=== PATIENT | male | born 1995 | race African-American/Black ===

== ENCOUNTER 2018-04-27 03:21 | Emergency (ER) | payer SELFPAY ==
[2018-04-27] MEDS ORDERED: IPRATROPIUM/ALBUTEROL 0.5-2.5 MG/3 ML AMPUL NEB ONE (07:04)
[2018-04-27] MEDS ORDERED: PREDNISONE 20 MG TABLET PO ONE (07:04)
[2018-04-27] MEDS ORDERED: ALBUTEROL SULFATE 0.083% NEB 2.5 MG/3 ML AMPUL NEB ONE (07:54)
[2018-04-27] MEDS ORDERED: ALBUTEROL SULFATE HFA (90 MCG/PUFF) 8 GM MDI (1 MDI/ER DISP) IH ONE (07:54)
--- NOTE | 2018-04-27 07:57 | ER Document Report ---
ED General - General Chief Complaint: Breathing Difficulty Stated Complaint: SHORTNESS OF BREATH Time Seen by Provider: 04/27/18 06:38 TRAVEL OUTSIDE OF THE [place] IN LAST 30 DAYS: No - HPI Patient complains to provider of: Difficulty breathing Notes: Patient coming in for difficulty breathing cough. Patient states ongoing for the last 24 hours. Patient states recently started smoking does have a history of asthma in the past. Patient denies any hospitalizations recent travel or intubations with his asthma. Patient otherwise resting company upon my evaluation states chest pain when he coughs. Denies any nausea vomiting diarrhea fevers chills. Denies any trauma denies any recent travel. Patient is resting no obvious distress upon my evaluation. - Related Data Allergies/Adverse Reactions: No Known Allergies Allergy (Unverified 04/27/18 03:24) Past Medical History - Social History Smoking Status: Current Every Day Smoker Family History: Reviewed & Not Pertinent Patient has suicidal ideation: No Patient has homicidal ideation: No Pulmonary Medical History: Reports: Hx Asthma Renal/ Medical History: Denies: Hx Peritoneal Dialysis Past Surgical History: Reports: Hx Orthopedic Surgery - pin in left hip Review of Systems - Review of Systems Constitutional: No symptoms reported EENT: No symptoms reported Cardiovascular: No symptoms reported Respiratory: Short of breath, Wheezing Gastrointestinal: No symptoms reported Genitourinary: No symptoms reported Male Genitourinary: No symptoms reported Musculoskeletal: No symptoms reported Skin: No symptoms reported Hematologic/Lymphatic: No symptoms reported Neurological/Psychological: No symptoms reported -: Yes All other systems reviewed and negative Physical Exam - Vital signs Vitals: Temp Pulse Resp BP Pulse Ox 97.6 F 85 19 120/72 97 04/27/18 03:26 04/27/18 03:26 04/27/18 03:26 04/27/18 03:26 04/27/18 03:26 Interpretation: Normal - General General appearance: Appears well, Alert - HEENT Head: Normocephalic, Atraumatic Eyes: Normal Pupils: PERRL - Respiratory Respiratory status: No respiratory distress Chest status: Nontender Breath sounds: Wheezing Chest palpation: Normal - Cardiovascular Rhythm: Regular Heart sounds: Normal auscultation Murmur: No - Abdominal Inspection: Normal Distension: No distension Bowel sounds: Normal Tenderness: Nontender Organomegaly: No organomegaly - Back Back: Normal, Nontender - Extremities General upper extremity: Normal inspection, Nontender, Normal color, Normal ROM, Normal temperature General lower extremity: Normal inspection, Nontender, Normal color, Normal ROM, Normal temperature, Normal weight bearing. No: Garrett's sign - Neurological Neuro grossly intact: Yes Cognition: Normal Orientation: AAOx4 Pamela Coma Scale Eye Opening: Spontaneous Hanna Coma Scale Verbal: Oriented Pamela Coma Scale Motor: Obeys Commands Hanna Coma Scale Total: 15 Speech: Normal Motor strength normal: LUE, RUE, LLE, RLE Sensory: Normal - Psychological Associated symptoms: Normal affect, Normal mood - Skin Skin Temperature: Warm Skin Moisture: Dry Skin Color: Normal Course - Re-evaluation Re-evalutation: 04/27/18 12:47 Patient coming in for shortness of breath difficulty breathing consistent with a slight asthma exacerbation. Patient with improvement of his lung sounds still wheezing after initial treatment. Patient states feeling better. Another albuterol treatment was given to the patient states he still is feeling better will discharge patient home with albuterol for nebulizer at home albuterol inhaler and steroids. - Vital Signs Vital signs: Temp Pulse Resp BP Pulse Ox 98.3 F 92 20 119/61 100 04/27/18 09:36 04/27/18 09:36 04/27/18 09:36 04/27/18 09:36 04/27/18 09:36 Discharge - Discharge Clinical Impression: Acute dyspnea, Wheezing, Smoking Condition: Good Disposition: HOME, SELF-CARE Instructions: Asthma ([facility]), Dyspnea, Nonspecific ([facility]) Additional Instructions: We will treat your shortness of breath and wheezing with bronchodilator therapy albuterol along with steroids. Is very important that you discontinue smoking. Return to ER for any other concerns. Prescriptions: Albuterol Sulfate [Proair HFA Inhalation Aerosol 8.5 gm MDI] 2 puff IH Q4H PRN #1 mdi PRN Reason: Albuterol Sulfate [Proventil 0.5% Neb 2.5 mg/0.5 ml Vial.neb] 2.5 mg NEB Q4 #30 vial.neb Prednisone [Deltasone 20 mg Tablet] 3 tab PO DAILY 5 Days tablet Forms: Smoking Cessation Education, Return to Work
[2018-04-27 09:41] VITALS: BP 119/61
== END 2018-04-27 09:43 | disposition home or self-care (01) ==
LOC: ER 03:21
DX: R06.2 Wheezing (principal); R06.00 Dyspnea, unspecified; R06.02 Shortness of breath; F17.200 Nicotine dependence, unspecified, uncomplicated
CPT/HCPCS: 94640 ×2; 99284; J7512; J3490; J7620

== ENCOUNTER 2018-05-13 00:57 | Emergency (ER) | payer SELFPAY ==
[2018-05-13] MEDS ORDERED: PREDNISONE 20 MG TABLET PO ONE (02:43)
[2018-05-13] MEDS ORDERED: ALBUTEROL SULFATE HFA (90 MCG/PUFF) 8 GM MDI (1 MDI/ER DISP) IH ONE (02:43)
--- NOTE | 2018-05-13 02:47 | ER Document Report ---
ED General - General Chief Complaint: Cough Stated Complaint: COUGH Time Seen by Provider: 05/13/18 02:15 Notes: Patient is a 22-year-old male who presents with complaint of wheezing and coughing. Patient has a history of asthma. He says over the last week he has had recurrent wheezing. Was seen here a week ago and given dose of steroids and inhaler. He says he was better for 2 3 days but was unable to fill his prednisone prescription and therefore start having wheezing again and therefore came to the ER. No fevers. No vomiting. No other complaints at this time. TRAVEL OUTSIDE OF THE [place] IN LAST 30 DAYS: No - Related Data Allergies/Adverse Reactions: No Known Allergies Allergy (Unverified 04/27/18 03:24) Past Medical History - Social History Smoking Status: Former Smoker Frequency of alcohol use: None Drug Abuse: None Family History: Reviewed & Not Pertinent Patient has suicidal ideation: No Patient has homicidal ideation: No Pulmonary Medical History: Reports: Hx Asthma Renal/ Medical History: Denies: Hx Peritoneal Dialysis Past Surgical History: Reports: Hx Orthopedic Surgery - pin in left hip Review of Systems - Review of Systems Notes: My Normal Review Basic REVIEW OF SYSTEMS: CONSTITUTIONAL : Denies fever, chills, or sweats. Denies recent illness. EENT: Denies eye, ear, throat, or mouth pain or symptoms. Denies nasal or sinus congestion. RESPIRATORY: Scattered wheezing. Some coughing. GASTROINTESTINAL: Denies abdominal pain. Denies nausea, vomiting, or diarrhea. MUSCULOSKELETAL: Denies neck or back pain or joint pain or swelling. SKIN: Denies rash or skin lesions. NEUROLOGICAL: Denies altered mental status or loss of consciousness. Denies headache. Denies weakness or paralysis or loss of use of either side. Denies problems with gait or speech. Denies sensory or motor loss. ALL OTHER SYSTEMS REVIEWED AND NEGATIVE. Physical Exam - Vital signs Vitals: Temp Pulse Resp BP Pulse Ox 97.7 F 63 17 112/59 L 95 05/13/18 01:35 05/13/18 01:35 05/13/18 01:35 05/13/18 01:35 05/13/18 01:35 - Notes Notes: General Appearance: Well nourished, alert, cooperative, no acute distress, no obvious discomfort. Vitals: reviewed, See vital signs table. Head: no swelling or tenderness to the head Eyes: PERRL, EOMI, Conjuctiva clear Mouth: No decreasd moisture Throat: No tonsillar inflammation, No airway obstruction, No lymphadenopathy Neck: Supple, no neck swelling Lungs: Noted wheezing. Good air exchange. Heart: Normal rate, Regular rythm, No murmur, no rub Skin: warm, dry, appropriate color, no rash Neuro: speech clear, oriented x 3, normal affect, responds appropriately to questions. Course - Re-evaluation Re-evalutation: 05/13/18 02:46 I suspect the patient is having some intermittent wheezing due to his asthma and also being that this current allergy season we have had a very large amount of pollen. I encouraged him to take [id number]-[id number] allergy medicine such as fexofenadine. The prednisone helped him with the 1 dose he received last time however he did not get his prescription filled and therefore his wheezing started again. I talked about the importance of taking the prednisone and I can have a good Rx prescription coupon for the prednisone wears only just over $4 at [facility]. We will give inhaler to go home with. I strongly encouraged him return to ER if he has recurrent worsening wheezing despite use of inhaler, fevers, difficulty breathing, or if he feels unwell. Patient agrees with plan will be discharged home. Dictation of this chart was performed using voice recognition software; therefore, there may be some unintended grammatical errors. - Vital Signs Vital signs: Temp Pulse Resp BP Pulse Ox 98 F 60 17 127/77 H 97 05/13/18 03:05 05/13/18 03:05 05/13/18 03:05 05/13/18 03:05 05/13/18 03:05 Discharge - Discharge Clinical Impression: Asthma Qualifiers: Asthma severity: unspecified severity Asthma persistence: intermittent Asthma complication type: with acute exacerbation Qualified Code(s): J45.21 - Mild intermittent asthma with (acute) exacerbation Condition: Good Disposition: HOME, SELF-CARE Additional Instructions: Please use the inhaler as 2 puffs every 4 hours. Please return to the ER immediately if you develop worsening difficulty breathing, fevers, or wheezing not responding to the inhaler. Please take the Prednisone as prescribed. Please consider taking an over the counter allergy medicine such as Fexofenidine. Prescriptions: RX: Prednisone [Deltasone 20 mg Tablet] 3 tab PO DAILY 4 Days #12 tablet
[2018-05-13 03:06] VITALS: BP 127/77
== END 2018-05-13 03:06 | disposition home or self-care (01) ==
LOC: ER 00:57
DX: J45.21 Mild intermittent asthma with (acute) exacerbation (principal)
CPT/HCPCS: 99283; J7512; J3490

== ENCOUNTER 2018-05-28 14:32 | Emergency (ER) | payer SELFPAY ==
[2018-05-28 14:45] VITALS: BP 135/75
[2018-05-28] MEDS ORDERED: IPRATROPIUM/ALBUTEROL 0.5-2.5 MG/3 ML AMPUL NEB ONE (14:51)
[2018-05-28] MEDS ORDERED: ALBUTEROL SULFATE 0.083% NEB 2.5 MG/3 ML AMPUL NEB ONE ×2 (14:51)
[2018-05-28] MEDS ORDERED: METHYLPREDNISOLONE INJ 125 MG/2 ML SDV IV ONE (14:52)
--- NOTE | 2018-05-28 14:53 | ER Document Report ---
ED Medical Screen (RME) - General Chief Complaint: Asthma Exacerbation Stated Complaint: DIFFICULTY BREATHING Time Seen by Provider: 05/28/18 14:48 Mode of Arrival: Ambulatory Information source: Patient Notes: Patient is a 22-year-old male with past medical history of asthma who presents to the emergency department with asthma exacerbation. Patient reports wheezing started last night, states he cannot find his inhaler. Patient reports associated wheezing and shortness of breath. Denies any fevers. Reports cough. Exam: Inspiratory and expiratory wheezes noted bilaterally. I have greeted and performed a rapid initial assessment of this patient. A comprehensive ED assessment and evaluation of the patient, analysis of test results and completion of the medical decision making process will be conducted by additional ED providers. Dictation of this chart was performed using voice recognition software; therefore, there may be some unintended grammatical errors. TRAVEL OUTSIDE OF THE [place] IN LAST 30 DAYS: No - Related Data Allergies/Adverse Reactions: No Known Allergies Allergy (Unverified 04/27/18 03:24) Past Medical History Pulmonary Medical History: Reports: Hx Asthma Renal/ Medical History: Denies: Hx Peritoneal Dialysis Past Surgical History: Reports: Hx Orthopedic Surgery - pin in left hip Physical Exam - Vital signs Vitals: Temp Pulse Resp BP Pulse Ox 98 F 90 24 H 135/75 H 97 05/28/18 14:37 05/28/18 14:37 05/28/18 14:37 05/28/18 14:37 05/28/18 14:37 Course - Vital Signs Vital signs: Temp Pulse Resp BP Pulse Ox 98 F 90 24 H 135/75 H 97 05/28/18 14:37 05/28/18 14:37 05/28/18 14:37 05/28/18 14:37 05/28/18 14:37
[2018-05-28] MEDS: MAGNESIUM SULFATE/D5W 1 GM/100 ML RTUPB IV SCH ×2 (15:28→15:38)
[2018-05-28 15:42] LABS: ABSOLUTE EOSINOPHILS # (AUTO) 0.5 10^3/uL (0.0-0.6); ABSOLUTE LYMPHOCYTES (AUTO) 0.9 10^3/uL (0.5-4.7); ABSOLUTE MONOCYTES (AUTO) 0.2 10^3/uL (0.1-1.4); ABSOLUTE NEUT (AUTO) 4.4 10^3/uL (1.7-8.2); BASOPHILS % (AUTO) 0.3 % (0-2); EOSINOPHILS % (AUTO) 8.2 % (0-6); HEMATOCRIT 46.3 % (37.9-51.0); HEMOGLOBIN 15.9 g/dL (13.5-17.0); LYMPHOCYTES % (AUTO) 15.4 % (13-45); MEAN CORPUSCULAR HEMOGLOBIN 30.1 pg (27.0-33.4); MEAN CORPUSCULAR HGB CONC 34.5 g/dL (32.0-36.0); MEAN CORPUSCULAR VOLUME 87 fl (80-97); MONOCYTES % (AUTO) 3.5 % (3-13); PLATELET COUNT 190 10^3/uL (150-450); RED BLOOD COUNT 5.29 10^6/uL (4.35-5.55); RED CELL DISTRIBUTION WIDTH 16.6 % (11.5-14.0); SEGMENTED NEUTROPHILS % (AUTO) 72.6 % (42-78); TOTAL CELLS COUNTED % (AUTO) 100 %; WHITE BLOOD COUNT 6.1 10^3/uL (4.0-10.5)
[2018-05-28 15:49] LABS: ALANINE AMINOTRANSFERASE 33 U/L (21-72); ALBUMIN 4.1 g/dL (3.5-5.0); ALKALINE PHOSPHATASE 53 U/L (38-126); ANION GAP 10 (5-19); ASPARTATE AMINO TRANSFERASE 19 U/L (17-59); BILIRUBIN,DIRECT 0.2 mg/dL (0.0-0.4); BILIRUBIN,TOTAL 0.8 mg/dL (0.2-1.3); BLOOD UREA NITROGEN 13 mg/dL (7-20); CALCIUM 9.4 mg/dL (8.4-10.2); CARBON DIOXIDE 27 mmol/L (22-30); CHLORIDE 105 mmol/L (98-107); GLUCOSE 95 mg/dL (75-110); POTASSIUM 3.8 mmol/L (3.6-5.0); SODIUM 141.7 mmol/L (137-145)
--- NOTE | 2018-05-28 15:54 | RADIOLOGY REPORT (SQ) ---
EXAM DESCRIPTION: CHEST 2 VIEWS COMPLETED DATE/TIME: 05/28/2018 3:18 pm REASON FOR STUDY: COUGH, WHEEZING COMPARISON: None. EXAM PARAMETERS: NUMBER OF VIEWS: two views TECHNIQUE: Digital Frontal and Lateral radiographic views of the chest acquired. RADIATION DOSE: NA LIMITATIONS: none FINDINGS: LUNGS AND PLEURA: No consolidation, pneumothorax or pleural effusion. MEDIASTINUM AND HILAR STRUCTURES: No masses or contour abnormalities. HEART AND VASCULAR STRUCTURES: Heart normal size. No evidence for failure. BONES: No acute findings. HARDWARE: None in the chest. IMPRESSION: NO ACUTE RADIOGRAPHIC FINDING IN THE CHEST. TECHNICAL DOCUMENTATION: JOB ID: [id number] 2010 [employer]- All Rights Reserved Reading location - IP/workstation name: [email or web address]
--- NOTE | 2018-05-28 16:39 | ER Document Report ---
ED General - General Chief Complaint: Asthma Exacerbation Stated Complaint: DIFFICULTY BREATHING Time Seen by Provider: 05/28/18 14:48 Mode of Arrival: Ambulatory TRAVEL OUTSIDE OF THE [place] IN LAST 30 DAYS: No - HPI Patient complains to provider of: Shortness of breath, coughing, wheezing, seasonal allergies Onset: Last week Onset/Duration: Persistent Quality of pain: No pain Severity: None Associated symptoms: Nonproductive cough, Shortness of breath. denies: Chills, Fever Exacerbated by: Denies Relieved by: Denies Similar symptoms previously: No Recently seen / treated by doctor: No Notes: 22-year-old -[place] male with history of asthma allergies and atopic dermatitis here with shortness of breath, coughing, wheezing since last week. Apparently has been to the ER for this recently. He has been diagnosed with asthma exacerbation. Was sent on prednisone and metered-dose inhaler. His metered-dose inhaler has gone missing and he is presenting for the same thing today. - Related Data Allergies/Adverse Reactions: No Known Allergies Allergy (Unverified 04/27/18 03:24) Past Medical History - General Information source: Patient - Social History Smoking Status: Never Smoker Frequency of alcohol use: None Drug Abuse: None Family History: Reviewed & Not Pertinent Patient has suicidal ideation: No Patient has homicidal ideation: No Pulmonary Medical History: Reports: Hx Asthma Renal/ Medical History: Denies: Hx Peritoneal Dialysis Past Surgical History: Reports: Hx Orthopedic Surgery - pin in left hip Review of Systems - Review of Systems Notes: Constitutional: No fevers. No chills. EENT: No eye redness. No eye pain. No ear pain. No sore throat. Cardiovascular: No chest pain. No palpitations. Respiratory: Positive for cough. Positive for shortness of breath. No respira tory distress. Gastrointestinal: No abdominal pain. No nausea, vomiting, or diarrhea. Genitourinary: Atraumatic. No lesions. No pain. No discharge. Musculoskeletal: Atraumatic. No swelling. No deformities. Skin: No rash or lesions. Lymphatic: No swollen lymph nodes. Neurologic: No headache. No syncope. Psychiatric: No suicidal or homicidal ideation. Physical Exam - Vital signs Vitals: Temp Pulse Resp BP Pulse Ox 98 F 90 24 H 135/75 H 97 05/28/18 14:37 05/28/18 14:37 05/28/18 14:37 05/28/18 14:37 05/28/18 14:37 - Notes Notes: General: Well-developed, well-nourished. In no acute distress. Non-toxic appearing. Cardiac: Well-perfused. Regular rate and rhythm. No murmurs, rubs, or gallops. Pulmonary: No respiratory distress. No cyanosis. Bilateral lung boogie are clear to auscultation. Abdominal: Non-distended. Non-rigid. Bowels sounds are present in all four quadrants. No guarding or rebound. HEENT: Head is atraumatic. Conjunctivae not reddened. No tearing. PERRL. EOMI. Orbits atraumatic. No periorbital swelling or erythema. Oropharynx is without erythema, swelling, or exudates. Neck: Supple. No adenopathy. No meningismus. Dermatologic: Warm with good turgor. No rash. Atraumatic. Chest: Atraumatic. No chest wall tenderness to palpation. Musculoskeletal: Moves all extremities well. No range of motion deficits. no muscular or joint tenderness. No paraspinal muscle tenderness. no midline spinal tenderness or step-off. Genitourinary: Examination deferred Neurologic: No gross neurologic deficits. Psychiatric: Normal mood. Course - Re-evaluation Re-evalutation: 05/28/18 16:36 Patient appears to be feeling better after couple of breathing treatments. We will start him on a prescription of prednisone 50 mg daily for a week. Also issued him a metered-dose inhaler. I will refer him to the [facility] for further evaluation - Vital Signs Vital signs: Temp Pulse Resp BP Pulse Ox 98 F 90 24 H 135/75 H 97 05/28/18 14:37 05/28/18 14:37 05/28/18 14:37 05/28/18 14:37 05/28/18 14:37 - Laboratory Result Diagrams: 05/28/18 15:10 05/28/18 15:10 Laboratory results interpreted by me: 05/28/18 15:10 RDW 16.6 H Eosinophils % 8.2 H Discharge - Discharge Clinical Impression: Asthma exacerbation Qualifiers: Asthma severity: unspecified severity Asthma persistence: unspecified Qualified Code(s): J45.901 - Unspecified asthma with (acute) exacerbation Condition: Good Disposition: HOME, SELF-CARE Instructions: Asthma ([facility]), Inhaled Bronchodilators ([facility]) Prescriptions: Albuterol Sulfate [Proair Hfa Inhalation Aerosol 8.5 gm Mdi] 2 puff IH Q4HP PRN #1 inhaler PRN Reason: Prednisone 50 mg PO DAILY #7 tablet Referrals: [facility] [Provider Group] - Follow up as needed
== END 2018-05-28 17:02 | disposition home or self-care (01) ==
LOC: ER 14:32
DX: J45.901 Unspecified asthma with (acute) exacerbation (principal); R06.02 Shortness of breath; R05 Cough; Z79.899 Other long term (current) drug therapy
CPT/HCPCS: 94640 ×2; 99285; 96375; 96365; 36415; 85025; 80053; 71046; J2930; J3475; J7620

== ENCOUNTER 2018-11-24 21:58 | Emergency (ER) | payer SELFPAY ==
[2018-11-24] MEDS ORDERED: PREDNISONE 20 MG TABLET PO ONE (22:27)
[2018-11-24] MEDS ORDERED: IPRATROPIUM/ALBUTEROL 0.5-2.5 MG/3 ML AMPUL NEB ONE (22:27)
--- NOTE | 2018-11-24 22:29 | ER Document Report ---
ED Medical Screen (RME) - General Chief Complaint: Shortness Of Breath Stated Complaint: DIFFICULTY BREATHING Time Seen by Provider: 11/24/18 22:25 Mode of Arrival: Ambulatory Information source: Patient Notes: 23-year-old male presents emergency department shortness of breath difficulty breathing. Reports history of asthma. Reports he used the last of his inhaler last night. Reports symptoms started last night. Denies fever vomiting diarrhea. Has never been intubated for asthma. Reports when he was younger he was hospitalized. Positive wheeze noted patient short of breath with talking. I have greeted and performed a rapid initial assessment of this patient. A comprehensive ED assessment and evaluation of the patient, analysis of test results and completion of the medical decision making process will be conducted by additional ED providers. Dictation of this chart was performed using voice recognition software; therefore, there may be some unintended grammatical errors. TRAVEL OUTSIDE OF THE [place] IN LAST 30 DAYS: No COUNTRY TRAVELED TO/FROM: [facility] - Related Data Allergies/Adverse Reactions: No Known Allergies Allergy (Unverified 04/27/18 03:24) Past Medical History Pulmonary Medical History: Reports: Hx Asthma Renal/ Medical History: Denies: Hx Peritoneal Dialysis Past Surgical History: Reports: Hx Orthopedic Surgery - pin in left hip Physical Exam - Vital signs Vitals: Temp Pulse Resp BP Pulse Ox 97.3 F 88 20 117/68 95 11/24/18 22:19 11/24/18 22:19 11/24/18 22:19 11/24/18 22:19 11/24/18 22:19 Course - Vital Signs Vital signs: Temp Pulse Resp BP Pulse Ox 97.3 F 88 20 117/68 95 11/24/18 22:19 11/24/18 22:19 11/24/18 22:19 11/24/18 22:19 11/24/18 22:19
[2018-11-24] MEDS: ALBUTEROL SULFATE 0.083% NEB 2.5 MG/3 ML AMPUL NEB SCH ×2 (22:52→23:15)
[2018-11-25] MEDS ORDERED: ALBUTEROL SULFATE HFA (90 MCG/PUFF) 8 GM MDI (1 MDI/ER DISP) IH PRN (00:51)
--- NOTE | 2018-11-25 01:00 | ER Document Report ---
ED General - General Chief Complaint: Shortness Of Breath Stated Complaint: DIFFICULTY BREATHING Time Seen by Provider: 11/24/18 22:25 Mode of Arrival: Ambulatory TRAVEL OUTSIDE OF THE [place] IN LAST 30 DAYS: No COUNTRY TRAVELED TO/FROM: [facility] - HPI Notes: Patient is a 23-year-old male with a known history of asthma who presents to the emergency department for evaluation of difficulty breathing. He states this started about 8:00 tonight. He states that all feels typical of his asthma exacerbations. He does note that he is run out of his albuterol inhaler. He denies any fevers or chills. He has a dry hacking cough. He has some pain across his anterior chest, states is always typical of his asthma exacerbations. He describes it as a soreness, currently rates it at a 1 out of 5. - Related Data Allergies/Adverse Reactions: No Known Allergies Allergy (Unverified 04/27/18 03:24) Home Medications: Albuterol MDI, 2 puffs as needed Past Medical History - General Information source: Patient - Social History Smoking Status: Never Smoker Family History: Reviewed & Not Pertinent, Thyroid Disfunction Patient has suicidal ideation: No Patient has homicidal ideation: No Pulmonary Medical History: Reports: Hx Asthma Renal/ Medical History: Denies: Hx Peritoneal Dialysis Past Surgical History: Reports: Hx Orthopedic Surgery - pin in left hip Review of Systems - Review of Systems Constitutional: No symptoms reported EENT: No symptoms reported Cardiovascular: No symptoms reported Respiratory: See HPI Gastrointestinal: No symptoms reported Genitourinary: No symptoms reported Musculoskeletal: No symptoms reported Skin: No symptoms reported Neurological/Psychological: No symptoms reported Physical Exam - Vital signs Vitals: Temp Pulse Resp BP Pulse Ox 97.3 F 88 20 117/68 95 11/24/18 22:19 11/24/18 22:19 11/24/18 22:19 11/24/18 22:19 11/24/18 22:19 - Notes Notes: Vital signs reviewed, please refer to chart. Head is normocephalic, atraumatic. Pupils equal round, reactive to light. Neck is supple without meningismus. Heart is regular rate and rhythm. Lungs revealed very sparse expiratory wheezes, no respiratory distress, no increased respiratory effort. Abdomen is soft, nontender, normoactive bowel sounds throughout. Extremities without cyanosis, clubbing. Posterior calves are nontender. Peripheral pulses are equal. Skin is warm and dry. Patient is awake, alert, neurological exam is non focal. Course - Re-evaluation Re-evalutation: 11/25/18 00:57 Patient presents emergency department for evaluation. He was initially medicated with breathing treatment and prednisone. He is feeling significantly improved. I will go ahead and give him an albuterol inhaler here, prescription for the same. We will also send him home with a prescription for prednisone and close follow-up. He is to return to the ED with worsening or new concerning symptoms of any sort. - Vital Signs Vital signs: Temp Pulse Resp BP Pulse Ox 97.8 F 80 16 120/61 100 11/24/18 23:30 11/24/18 23:30 11/24/18 23:30 11/24/18 23:30 11/24/18 23:30 Discharge - Discharge Clinical Impression: Acute asthma Condition: Stable Disposition: HOME, SELF-CARE Instructions: Asthma ([facility]) Additional Instructions: Use albuterol inhaler as directed, as needed for shortness of breath. Take all the prednisone as directed until gone, starting tomorrow. Follow-up with your primary care physician next week. Return to the emergency department with worsening or new concerning symptoms of any sort.
[2018-11-25 01:19] VITALS: BP 109/48
== END 2018-11-25 01:26 | disposition home or self-care (01) ==
LOC: ER 21:58
DX: J45.901 Unspecified asthma with (acute) exacerbation (principal)
CPT/HCPCS: 94640 ×2; 99284; J7512; J3490; J7620

== ENCOUNTER 2019-04-24 06:30 | Emergency (ER) | payer SELFPAY ==
[2019-04-24] MEDS ORDERED: IPRATROPIUM/ALBUTEROL 0.5-2.5 MG/3 ML AMPUL NEB ONE ×2 (07:06→07:39)
[2019-04-24] MEDS ORDERED: PREDNISONE 20 MG TABLET PO ONE (07:06)
[2019-04-24] MEDS: ALBUTEROL SULFATE 0.083% NEB 2.5 MG/3 ML AMPUL NEB SCH ×2 (07:11→07:29)
--- NOTE | 2019-04-24 07:37 | ER Document Report ---
ED General - General Chief Complaint: Shortness Of Breath Stated Complaint: DIFFICULTY BREATHING/CHEST PAIN Time Seen by Provider: 04/24/19 07:37 TRAVEL OUTSIDE OF THE [place] IN LAST 30 DAYS: No - HPI Patient complains to provider of: SOB Notes: Increasing shortness of breath cough difficulty breathing for approximately 6 hours. Difficult for patient sleep. Patient has known history of asthma. Has been out of his home asthma medications for some time. States this feels like his normal acute asthma exacerbation. Denies fever chills myalgias or travel. - Related Data Allergies/Adverse Reactions: No Known Allergies Allergy (Verified 04/24/19 06:58) Past Medical History - Social History Smoking Status: Never Smoker Chew tobacco use (# tins/day): No Frequency of alcohol use: None Drug Abuse: None Family History: Reviewed & Not Pertinent, Thyroid Disfunction Patient has suicidal ideation: No Patient has homicidal ideation: No Pulmonary Medical History: Reports: Hx Asthma Renal/ Medical History: Denies: Hx Peritoneal Dialysis Past Surgical History: Reports: Hx Orthopedic Surgery - pin in left hip Review of Systems - Review of Systems Notes: REVIEW OF SYSTEMS: CONSTITUTIONAL: -fevers, -chills EENT: -eye pain, -difficulty swallowing, -nasal congestion CARDIOVASCULAR: -chest pain, -syncope. RESPIRATORY: shortness of breath GASTROINTESTINAL: -abdominal pain, -nausea, -vomiting, -diarrhea GENITOURINARY: -dysuria, -hematuria MUSCULOSKELETAL: -back pain, -neck pain SKIN: -rash or skin lesions. HEMATOLOGIC: -easy bruising or bleeding. LYMPHATIC: -swollen, enlarged glands. NEUROLOGICAL: -altered mental status or loss of consciousness, -headache, - neurologic symptoms PSYCHIATRIC: -anxiety, -depression. ALL OTHER SYSTEMS REVIEWED AND NEGATIVE. Physical Exam - Vital signs Vitals: Temp Pulse Resp BP Pulse Ox 97.5 F 72 23 H 132/73 H 97 04/24/19 06:58 04/24/19 06:58 04/24/19 06:58 04/24/19 06:58 04/24/19 06:58 - Notes Notes: PHYSICAL EXAMINATION: GENERAL: Well-appearing, well-nourished and in mild acute distress. HEAD: Atraumatic, normocephalic. EYES: Pupils equal round and reactive to light, extraocular movements intact, sclera anicteric, conjunctiva are normal. ENT: nares patent, oropharynx clear without exudates. Moist mucous membranes. NECK: Normal range of motion, supple without lymphadenopathy LUNGS:mild resp distress, biphasic wheezing HEART: Regular rate and rhythm without murmurs ABDOMEN: Soft, nontender, normoactive bowel sounds. No guarding, no rebound. No masses appreciated. EXTREMITIES: Normal range of motion, no pitting or edema. No cyanosis. NEUROLOGICAL: Cranial nerves grossly intact. Normal speech, normal gait. Normal sensory and motor exams. PSYCH: Normal mood, normal affect. SKIN: Warm, Dry, normal turgor, no rashes or lesions noted. Course - Re-evaluation Re-evalutation: 04/24/19 07:41 23-year-old male presents with short duration of asthma exacerbation. Patient initially is in some acute respiratory distress. Given 2 duo nebs oral steroids. Feeling markedly improved. EKG is no ischemic changes, chest x-rays no focal infiltrate or other acute process. Patient will be discharged home improved with prescription for short course of oral steroids and albuterol inhaler. Recommend follow-up at PCP return if anything worsens or changes. - Vital Signs Vital signs: Temp Pulse Resp BP Pulse Ox 97.5 F 72 23 H 132/73 H 97 04/24/19 06:58 04/24/19 06:58 04/24/19 06:58 04/24/19 06:58 04/24/19 06:58 - EKG Interpretation by Me Additional EKG results interpreted by me: 04/24/19 07:40 Normal sinus rhythm, no ST elevations or depressions, no pathologic T wave inversions, normal RI, normal QRS interval. Discharge - Discharge Clinical Impression: Asthma exacerbation Qualifiers: Asthma severity: unspecified severity Asthma persistence: unspecified Qualified Code(s): J45.901 - Unspecified asthma with (acute) exacerbation Condition: Stable Disposition: HOME, SELF-CARE Instructions: Asthma ([facility]) Additional Instructions: Follow-up with your PCP Prescriptions: Prednisone [Deltasone 20 mg Tablet] 2 tab PO DAILY 3 Days #6 tablet Albuterol Sulfate [Proair HFA Inhalation Aerosol 8.5 gm MDI] 2 puff IH Q4H PRN #1 mdi PRN Reason:
[2019-04-24 09:09] VITALS: BP 120/55
--- NOTE | 2019-04-24 09:39 | RADIOLOGY REPORT (SQ) ---
EXAM DESCRIPTION: CHEST 2 VIEWS COMPLETED DATE/TIME: 04/24/2019 7:47 am REASON FOR STUDY: SOB, chest pain COMPARISON: Two-view 05/28/2018 EXAM PARAMETERS: NUMBER OF VIEWS: two views TECHNIQUE: Digital Frontal and Lateral radiographic views of the chest acquired. RADIATION DOSE: NA LIMITATIONS: none FINDINGS: LUNGS AND PLEURA: No opacities, masses or pneumothorax. No pleural effusion. MEDIASTINUM AND HILAR STRUCTURES: No masses or contour abnormalities. HEART AND VASCULAR STRUCTURES: Heart normal size. No evidence for failure. BONES: No acute findings. HARDWARE: None in the chest. OTHER: No other significant finding. IMPRESSION: NO ACUTE RADIOGRAPHIC FINDING IN THE CHEST. TECHNICAL DOCUMENTATION: JOB ID: [id number] 2010 [email or web address]- All Rights Reserved Reading location - IP/workstation name: [email or web address]
--- NOTE | 2019-04-24 12:06 | EKG REPORT ---
SEVERITY:- ABNORMAL ECG - SINUS RHYTHM ST ELEVATION SUGGESTS PERICARDITIS : Confirmed by: Venus Diop 24-Apr-2019 12:05:09
== END 2019-04-24 08:30 | disposition home or self-care (01) ==
LOC: ER 06:30
DX: J45.901 Unspecified asthma with (acute) exacerbation (principal); R05 Cough; R06.02 Shortness of breath; R06.03 Acute respiratory distress
CPT/HCPCS: 93005; 94640 ×2; 99285; 71046; 93010; J7512; J7620

== ENCOUNTER 2019-04-25 02:34 | Emergency (ER) | payer SELFPAY ==
[2019-04-25] MEDS ORDERED: PREDNISONE 20 MG TABLET PO ONE (04:00)
[2019-04-25] MEDS ORDERED: IPRATROPIUM/ALBUTEROL 0.5-2.5 MG/3 ML AMPUL NEB ONE (04:00)
--- NOTE | 2019-04-25 04:22 | ER Document Report ---
HPI - HPI Time Seen by Provider: 04/25/19 03:54 Pain Level: 3 Context: Patient is a 23-year-old male that comes to the emergency department for chief complaint of wheezing, shortness of breath, asthma exacerbation. He states he was seen here yesterday, felt great after treatments, was prescribed steroids and an albuterol inhaler but he states he did not have the money to fill it yet. He gets paid tomorrow. He states that he started wheezing again this evening and return because it was getting worse. He reports some tightness in his chest with the wheezing but he denies cough, fever, chest pain, dizziness, or any other symptoms. He denies smoking, he does have a history of asthma, he denies recreational drugs, he denies any medical history otherwise. - CONSTITUTIONAL Constitutional: DENIES: Fever, Chills - REPRODUCTIVE Reproductive: DENIES: : Past Medical History - General Information source: Patient - Social History Smoking Status: Never Smoker Chew tobacco use (# tins/day): No Frequency of alcohol use: Occasional Drug Abuse: None Lives with: Alone Family History: Reviewed & Not Pertinent, Thyroid Disfunction Patient has suicidal ideation: No Patient has homicidal ideation: No Pulmonary Medical History: Reports: Hx Asthma Renal/ Medical History: Denies: Hx Peritoneal Dialysis Past Surgical History: Reports: Hx Orthopedic Surgery - pin in left hip - Immunizations Immunizations up to date: Yes Hx Diphtheria, Pertussis, Tetanus Vaccination: Yes Vertical Provider Document - CONSTITUTIONAL General Appearance: WD/WN, No Apparent Distress - Sleeping but easily aroused - INFECTION CONTROL TRAVEL OUTSIDE OF THE [place] IN LAST 30 DAYS: No - HEENT HEENT: Atraumatic, Normal ENT Exam, Normocephalic - NECK Neck: Normal Inspection - RESPIRATORY Respiratory: No Respiratory Distress, Wheezing - Patient with expiratory wheezing in all lung boogie but still has breath sounds along with this. He has no tachypnea, retractions, labored breathing, or cough.. negative: Breath Sounds Normal - CARDIOVASCULAR Cardiovascular: Regular Rate, Regular Rhythm - GI/ABDOMEN Gastrointestinal: Abdomen Soft, Abdomen Non-Tender. negative: Abdomen Tender - BACK Back: Normal Inspection - MUSCULOSKELETAL/EXTREMETIES Musculoskeletal/Extremeties: MAEW, FROM, Non-Tender - NEURO Level of Consciousness: Awake, Alert, Appropriate Motor/Sensory: No Motor Deficit, No Sensory Deficit - DERM Integumentary: Warm, Dry, No Rash Course - Re-evaluation Re-evalutation: Patient sleeping but easily aroused. He is wheezing but he has no signs of respiratory distress. He does not have hypoxia. He had a negative chest x-ray and an EKG yesterday. After 2 duo nebs his wheezing completely resolved, he states he feels great and he is ready to leave. He states he will fill the steroids. Provided with inhaler and spacer here. Discussed follow-up and return precautions. Patient states appreciation and agreement. Stable and asymptomatic at time of discharge. - Vital Signs Vital signs: Temp Pulse Resp BP Pulse Ox 98.0 F 63 18 156/88 H 100 04/25/19 02:51 04/25/19 02:51 04/25/19 02:51 04/25/19 02:51 04/25/19 02:51 Discharge - Discharge Clinical Impression: Wheezing Asthma exacerbation Qualifiers: Asthma severity: mild Asthma persistence: unspecified Qualified Code(s): J45.901 - Unspecified asthma with (acute) exacerbation Condition: Stable Disposition: HOME, SELF-CARE Additional Instructions: You have been evaluated today for an asthma exacerbation. Use albuterol inhaler with the spacer, fill and take your prednisone, rest. Follow-up with primary care for additional evaluation and management. See referral. Return if you worsen including rapid or labored breathing, spiking fever, or any other concerning or worsening symptoms. Forms: Return to Work Referrals: [facility] [Provider Group] - Follow up as needed [facility] [Provider Group] - Follow up as needed MANAS PENG MD [ACTIVE STAFF] - Follow up as needed
[2019-04-25] MEDS ORDERED: ALBUTEROL SULFATE HFA (90 MCG/PUFF) 8 GM MDI (1 MDI/ER DISP) IH ONE (04:37)
[2019-04-25 04:50] VITALS: BP 128/75
== END 2019-04-25 04:47 | disposition home or self-care (01) ==
LOC: ER 02:34
DX: J45.901 Unspecified asthma with (acute) exacerbation (principal); R06.02 Shortness of breath; R07.9 Chest pain, unspecified
CPT/HCPCS: 99283; J7512; J3490; J7620

== ENCOUNTER 2019-05-13 10:26 | Emergency (ER) | payer SELFPAY ==
[2019-05-13 11:51] LABS: A TYPE INFLUENZA AG NEGATIVE (NEGATIVE)
[2019-05-13 11:52] LABS: B INFLUENZA AG NEGATIVE (NEGATIVE)
--- NOTE | 2019-05-13 12:38 | ER Document Report ---
Entered by GERMAINE WALLIS SCRIBE 05/13/19 1122 Acting as scribe for:NAY MÉNDEZ MD ED General - General Chief Complaint: Breathing Difficulty Stated Complaint: DIFFICULTY BREATHING Time Seen by Provider: 05/13/19 10:35 Information source: Patient Notes: This 23-year-old male presents to the emergency department complaining of rhinorrhea for the past 2-3 days. Patient complains of a dry cough and difficulty breathing. Patient denies fever and chest pain. Patient states that his asthma has been acting up due to the pollen. TRAVEL OUTSIDE OF THE [place] IN LAST 30 DAYS: No - Related Data Allergies/Adverse Reactions: No Known Allergies Allergy (Verified 04/24/19 06:58) Past Medical History - General Information source: Patient - Social History Smoking Status: Former Smoker Cigarette use (# per day): No Chew tobacco use (# tins/day): No Frequency of alcohol use: Social Drug Abuse: None Family History: Reviewed & Not Pertinent, Thyroid Disfunction Patient has suicidal ideation: No Patient has homicidal ideation: No Pulmonary Medical History: Reports: Hx Asthma Past Surgical History: Reports: Hx Orthopedic Surgery - pin in left hip - Immunizations Immunizations up to date: Yes Hx Diphtheria, Pertussis, Tetanus Vaccination: Yes Review of Systems - Review of Systems Constitutional: See HPI. denies: Fever EENT: See HPI, Nose discharge Cardiovascular: See HPI. denies: Chest pain Respiratory: See HPI, Cough Gastrointestinal: No symptoms reported Genitourinary: No symptoms reported Male Genitourinary: No symptoms reported Musculoskeletal: No symptoms reported Skin: No symptoms reported Hematologic/Lymphatic: No symptoms reported Neurological/Psychological: No symptoms reported -: Yes All other systems reviewed and negative Physical Exam - Vital signs Vitals: Temp Pulse Resp BP Pulse Ox 98.3 F 65 12 164/70 H 97 05/13/19 10:40 05/13/19 10:40 05/13/19 10:40 05/13/19 10:40 05/13/19 10:40 - Notes Notes: Physical Exam: General: Alert, appears well. HEENT: Normocephalic. Atraumatic. PERRL. Extraocular movements intact. Pharynx has mild erythema. Clear nasal discharge in left nostril. Patient has a deviated septum. Neck: Supple. Non-tender. Respiratory: No respiratory distress. Clear and equal breath sounds bilaterally. Cardiovascular: Regular rate and rhythm. Abdominal: Normal Inspection. Non-tender. No distension. Normal Bowel Sounds. Back: No gross abnormalities. Extremities: Moves all four extremities. Upper extremities: Normal inspection. Normal ROM. Lower extremities: Normal inspection. No edema. Normal ROM. Neurological: Normal cognition. AAOx4. Normal speech. Psychological: Normal affect. Normal Mood. Skin: Warm. Dry. Normal color. Course - Re-evaluation Re-evalutation: 05/13/19 12:33 Patient resting comfortably not showing any signs of distress. No wheezing. - Vital Signs Vital signs: Temp Pulse Resp BP Pulse Ox 98.3 F 65 12 164/70 H 97 05/13/19 10:40 05/13/19 10:40 05/13/19 10:40 05/13/19 10:40 05/13/19 10:40 - Laboratory Laboratory results interpreted by me: All negative strep test influenza a and B. Discharge - Discharge Clinical Impression: Asthma, Upper respiratory infection, viral, Seasonal allergies Condition: Stable Disposition: HOME, SELF-CARE Instructions: Upper Respiratory Illness ([facility]) Prescriptions: Amoxicillin 1 tab PO TID #30 tab Albuterol Sulfate [Proair HFA Inhalation Aerosol 8.5 gm MDI] 2 puff IH Q4H PRN #1 mdi PRN Reason: Cetirizine HCl [Zyrtec 10 mg Tablet] 10 mg PO DAILY #30 tablet I personally performed the services described in the documentation, reviewed and edited the documentation which was dictated to the scribe in my presence, and it accurately records my words and actions.
[2019-05-13 13:03] VITALS: BP 160/58
== END 2019-05-13 13:01 | disposition home or self-care (01) ==
LOC: ER 10:26
DX: J45.909 Unspecified asthma, uncomplicated (principal); J06.9 Acute upper respiratory infection, unspecified; B97.89 Other viral agents as the cause of diseases classified elsewhere; J34.89 Other specified disorders of nose and nasal sinuses; R05 Cough; J34.2 Deviated nasal septum; Z87.891 Personal history of nicotine dependence
CPT/HCPCS: 87070; 87635; 87804; 87880; 99283

== ENCOUNTER 2019-06-09 03:31 | Emergency (ER) | payer SELFPAY ==
[2019-06-09] MEDS ORDERED: ALBUTEROL SULFATE 0.083% NEB 2.5 MG/3 ML AMPUL NEB ONE (04:26)
[2019-06-09] MEDS ORDERED: PREDNISONE 20 MG TABLET PO ONE (04:27)
--- NOTE | 2019-06-09 04:46 | ER Document Report ---
Entered by MARBELLA PILLAI SCRIBE 06/09/19 0419 Acting as scribe for:CALEB ANN IV, MD ED Respiratory Problem - General Chief Complaint: Asthma Exacerbation Stated Complaint: DIFFICULTY BREATHING,CONSTIPATION Time Seen by Provider: 06/09/19 04:15 Mode of Arrival: Ambulatory Information source: Patient Notes: This 23 year old male patient presents to the ED today with complaints of asthma exacerbation and shortness of breath that started prior to arrival. Patient states that he ran out of his medication for his inhaler. Denies fever or chills. Denies tobacco use. TRAVEL OUTSIDE OF THE [place] IN LAST 30 DAYS: No - Related Data Allergies/Adverse Reactions: No Known Allergies Allergy (Verified 04/24/19 06:58) Past Medical History - General Information source: Patient, [facility] - Social History Smoking Status: Never Smoker Cigarette use (# per day): No Chew tobacco use (# tins/day): No Smoking Education Provided: No Family History: Reviewed & Not Pertinent, Thyroid Disfunction Patient has suicidal ideation: No Patient has homicidal ideation: No Pulmonary Medical History: Reports: Hx Asthma Past Surgical History: Reports: Hx Orthopedic Surgery - pin in left hip - Immunizations Immunizations up to date: Yes Hx Diphtheria, Pertussis, Tetanus Vaccination: Yes Review of Systems - Review of Systems Constitutional: See HPI. denies: Chills, Fever EENT: No symptoms reported Cardiovascular: No symptoms reported Respiratory: See HPI, Short of breath, Other - Asthma exacerbation Gastrointestinal: No symptoms reported Genitourinary: No symptoms reported Male Genitourinary: No symptoms reported Musculoskeletal: No symptoms reported Skin: No symptoms reported Hematologic/Lymphatic: No symptoms reported Neurological/Psychological: No symptoms reported -: Yes All other systems reviewed and negative Physical Exam - Vital signs Vitals: Temp Pulse Resp BP Pulse Ox 98.6 F 105 H 20 157/65 H 95 06/09/19 03:34 06/09/19 03:34 06/09/19 03:34 06/09/19 03:34 06/09/19 03:34 - General General appearance: Alert - HEENT Head: Normocephalic, Atraumatic Eyes: Normal Pupils: PERRL - Respiratory Respiratory status: No respiratory distress Chest status: Nontender Breath sounds: Decreased air movement, Wheezing - Diffuse wheezing in all lung boogie Chest palpation: Normal - Cardiovascular Rhythm: Regular Heart sounds: Normal auscultation Murmur: No Friction rub: No Gallop: None auscultated - Abdominal Inspection: Normal Distension: No distension Bowel sounds: Normal Tenderness: Nontender - Abdomen soft Organomegaly: No organomegaly - Back Back: Normal, Nontender - Extremities General upper extremity: Normal inspection General lower extremity: Normal inspection - Neurological Neuro grossly intact: Yes - Psychological Associated symptoms: Normal affect, Normal mood - Skin Skin Temperature: Warm Skin Moisture: Dry Skin Color: Normal Course - Re-evaluation Re-evalutation: 06/09/19 06:24 Patient states he is feeling much better after receiving albuterol neb treatments. All questions were answered prior to discharge. Emergency signs and symptoms, reasons to return to the emergency department discussed with patient. - Vital Signs Vital signs: Temp Pulse Resp BP Pulse Ox 98.4 F 105 H 22 H 147/73 H 93 06/09/19 03:43 06/09/19 03:34 06/09/19 05:01 06/09/19 05:01 06/09/19 05:01 Discharge - Discharge Clinical Impression: Asthma exacerbation Qualifiers: Asthma severity: unspecified severity Asthma persistence: unspecified Qualified Code(s): J45.901 - Unspecified asthma with (acute) exacerbation Condition: Good Disposition: HOME, SELF-CARE Instructions: Asthma ([facility]), Inhaled Bronchodilators ([facility]) Additional Instructions: Return to the Emergency Department without delay if any worse. HOME CARE INSTRUCTIONS & INFORMATION: Thank you for choosing us for your medical needs. We hope you're satisfied with the care you received. After you leave, you must properly care for your problem and, at the same time, observe its progress. Any condition can change. Some illnesses can change rapidly over hours or days. If your condition worsens, return to the Emergency Department or see your physician promptly. ABOUT YOUR X-RAYS AND EKG'S: If you had an EKG or X-rays taken, they have been read by the Emergency Physician. The X-rays and EKG's will also be read by a Radiologist or Fiber Heel Piece Shaper within 24 hours. If discrepancies are noted, you will be notified by telephone. Please be certain the ED has a correct telephone number & address where you can be reached. Also, realize that some fractures or abnormalities do not show up on initial X-rays. If your symptoms continue, see your physician. ABOUT YOUR LABORATORY TEST: If you had laboratory tests, the results have been reviewed by the Emergency Physician. Some test results (for example cultures) may not be available for several days. You will be contacted if any test result shows you need additional treatment. Please be certain the ED has a correct telephone number and address where you can be reached. ABOUT YOUR MEDICATIONS: You will receive instructions on how to take your medicine on the prescription label you receive. Additional information may be provided by the Pharmacy. If you have questions afterwards, call the ED for clarification or further instructions. Some prescribed medications may cause drowsiness. Do not perform tasks such as driving a car or operating machinery without consulting your Pharmacist. If you feel you need a refill of pain medication, your condition will need re-evaluation. Please do not call for a refill of any medication. ABOUT YOUR SIGNATURE: Signature of this document acknowledges to followin. Understanding that you received emergency treatment and that you may be released before al medical problems are known or treated. Please be certain the ED has a correct phone number & address where you can be reached. 2. Acknowledgement that you will arrange for follow-up care as recommended. 3. Authorization for the Emergency Physician to provide information to your follow-up Physician in order to maximize your care. AT ANY TIME, IF YOUR SYMPTOMS CHANGE SIGNIFICANTLY OR WORSEN OR YOU DEVELOP NEW SYMPTOMS, RETURN TO THE EMERGENCY DEPARTMENT IMMEDIATELY FOR RE-EVALUATION. OUR GOAL IS TO PROVIDE EXCELLENT MEDICAL CARE! WE HOPE THAT WE HAVE MET YOUR EXPECTATIONS DURING YOUR EMERGENCY DEPARTMENT VISIT AND THAT YOU FEEL YOU HAVE RECEIVED EXCELLENT CARE! Prescriptions: Prednisone [Deltasone 20 mg Tablet] 3 tab PO DAILY 4 Days #12 tablet Referrals: AMARIS HAYWOOD MD [HONORARY] - Follow up as needed I personally performed the services described in the documentation, reviewed and edited the documentation which was dictated to the scribe in my presence, and it accurately records my words and actions.
[2019-06-09] MEDS ORDERED: ALBUTEROL SULFATE HFA (90 MCG/PUFF) 8 GM MDI (1 MDI/ER DISP) IH ONE (05:57)
[2019-06-09 07:22] VITALS: BP 133/76
== END 2019-06-09 07:37 | disposition home or self-care (01) ==
LOC: ER 03:31
DX: J45.901 Unspecified asthma with (acute) exacerbation (principal)
CPT/HCPCS: 94640; 99284; J7512

== ENCOUNTER 2019-06-17 21:43 | Emergency (ER) | payer SELFPAY ==
--- NOTE | 2019-06-18 01:50 | ER Document Report ---
HPI - HPI Time Seen by Provider: 06/18/19 01:14 Pain Level: 2 Context: Patient is a 23-year-old male that comes emergency department for chief complaint of a rash mainly on his palms and fingers, slightly on the dorsal aspect of his hand, and slightly on his legs as well. He states he has a known history of eczema, however he has never had anything like this. He states he does not particularly itch but there are almost blisters which are sensitive to the touch and almost give a burning sensation when even brushed over. He denies any other symptoms including headache, fever, congestion, cough, chills, body aches. He denies medical history other than eczema, denies smoking, alcohol, recreational drugs. - CONSTITUTIONAL Constitutional: DENIES: Fever, Chills - REPRODUCTIVE Reproductive: DENIES: : Past Medical History - General Information source: Patient - Social History Smoking Status: Former Smoker Frequency of alcohol use: Social Drug Abuse: None Lives with: Family Family History: Reviewed & Not Pertinent, Thyroid Disfunction Patient has homicidal ideation: No Pulmonary Medical History: Reports: Hx Asthma Renal/ Medical History: Denies: Hx Peritoneal Dialysis Skin Medical History: Reports Hx Eczema Past Surgical History: Reports: Hx Orthopedic Surgery - pin in left hip - Immunizations Immunizations up to date: Yes Hx Diphtheria, Pertussis, Tetanus Vaccination: Yes Vertical Provider Document - CONSTITUTIONAL General Appearance: WD/WN, No Apparent Distress - INFECTION CONTROL TRAVEL OUTSIDE OF THE [place] IN LAST 30 DAYS: No - HEENT HEENT: Atraumatic, Normal ENT Exam, Normocephalic - NECK Neck: Normal Inspection - RESPIRATORY Respiratory: Breath Sounds Normal, No Respiratory Distress - CARDIOVASCULAR Cardiovascular: Regular Rate, Regular Rhythm. negative: Tachycardia - GI/ABDOMEN Gastrointestinal: Abdomen Soft, Abdomen Non-Tender. negative: Abdomen Tender - BACK Back: Normal Inspection - MUSCULOSKELETAL/EXTREMETIES Musculoskeletal/Extremeties: MAEW, FROM, Non-Tender - NEURO Level of Consciousness: Awake, Alert, Appropriate Motor/Sensory: No Motor Deficit, No Sensory Deficit - DERM Integumentary: Warm, Dry, Rash - Eczema rash with dry excoriated appearance along the right side of the neck and along several fingers and slightly over the extremities. Is also notably in the AC areas of both arms. In addition to this there are small bulla and also circular elevations consistent with vesicles noted over the palms and around the fingers. There is 1 small bulla on each palm that is larger than the rest and notable. These are somewhat sensitive but are not significantly erythematous, there is no purulent component, there is no ecchymosis. No fluctuance or induration. Course - Re-evaluation Re-evalutation: Patient's examination is most consistent with dyshidrotic eczema. It is slightly strange that there is no itching over the areas, however they are sensitive and very suggestive based on their appearance. Patient also has noted eczema currently in addition to this. Based on the distribution, appearance, associated symptoms, I have low suspicion of infectious cause. Dr. Jackson did evaluate the patient at bedside and agrees this is most likely dyshidrotic eczema. His recommendation is topical steroids first, at this time we will not ramesh the areas or place him on antibiotics. We did discuss dermatology follow- up and return precautions in detail. Patient states appreciation and agreement. Stable and well-appearing at time of discharge. - Vital Signs Vital signs: Temp Pulse Resp BP Pulse Ox 98 F 70 14 134/71 H 100 06/17/19 22:36 06/17/19 21:48 06/17/19 21:48 06/17/19 21:48 06/17/19 21:48 Discharge - Discharge Clinical Impression: Rash Condition: Stable Disposition: HOME, SELF-CARE Additional Instructions: Your evaluation is most consistent with dyshidrotic eczema. Recommendation is to apply the topical steroid cream as directed. Follow-up with dermatology for additional management. Return for any concerning symptoms including developing or spreading redness, pus drainage, fever, or any other concerning or worsening symptoms. Prescriptions: Triamcinolone Acetonide [Aristocort 0.5% Cream 15 gm] 1 applic TP TID PRN #1 tube PRN Reason: Forms: Return to Work Referrals: CARLOS ENRIQUE WINSLOW, [ACTIVE STAFF] - Follow up as needed
[2019-06-18 02:22] VITALS: BP 111/70
== END 2019-06-18 02:21 | disposition home or self-care (01) ==
LOC: ER 21:43
DX: J45.909 Unspecified asthma, uncomplicated (principal); L30.9 Dermatitis, unspecified; Z87.891 Personal history of nicotine dependence
CPT/HCPCS: 99282

== ENCOUNTER 2019-08-28 06:05 | Emergency (ER) | payer SELFPAY ==
[2019-08-28] MEDS ORDERED: ALBUTEROL SULFATE 0.083% NEB 2.5 MG/3 ML AMPUL NEB ONE (06:45)
--- NOTE | 2019-08-28 07:01 | ER Document Report ---
Entered by MARBELLA PILLAI SCRIBE 08/28/19 0620 Acting as scribe for:NAY MÉNDEZ MD ED General - General Chief Complaint: Asthma Exacerbation Stated Complaint: DIFFICULTY BREATHING Mode of Arrival: Ambulatory Information source: Patient Notes: This 24 year old male patient with a history of asthma presents to the ED today with complaints of shortness of breath and wheezing that started around 0130 this morning. Patient states that he ran out of his medication for his inhaler, so he decided to come to the ED. Denies fever, chills, cough, shortness of breath, chest pain, nausea/vomiting/diarrhea. Denies any Covid concerns. TRAVEL OUTSIDE OF THE [place] IN LAST 30 DAYS: No - Related Data Allergies/Adverse Reactions: No Known Allergies Allergy (Verified 06/17/19 22:36) Past Medical History - General Information source: Patient, [facility] Records - Social History Smoking Status: Never Smoker Cigarette use (# per day): No Chew tobacco use (# tins/day): No Smoking Education Provided: No Family History: Reviewed & Not Pertinent, Thyroid Disfunction Patient has suicidal ideation: No Patient has homicidal ideation: No Pulmonary Medical History: Reports: Hx Asthma Skin Medical History: Reports Hx Eczema Psychiatric Medical History: Reports: Hx Attention Deficit Hyperactivity Disorder, Hx Bipolar Disorder, Hx Depression Past Surgical History: Reports: Hx Orthopedic Surgery - pin in left hip - Immunizations Immunizations up to date: Yes Hx Diphtheria, Pertussis, Tetanus Vaccination: Yes Review of Systems - Review of Systems Constitutional: See HPI. denies: Chills, Fever EENT: See HPI. denies: Throat pain Cardiovascular: See HPI. denies: Chest pain Respiratory: See HPI, Short of breath, Wheezing. denies: Cough Gastrointestinal: See HPI. denies: Diarrhea, Nausea, Vomiting Genitourinary: No symptoms reported Male Genitourinary: No symptoms reported Musculoskeletal: No symptoms reported Skin: No symptoms reported Hematologic/Lymphatic: No symptoms reported Neurological/Psychological: No symptoms reported -: Yes All other systems reviewed and negative Physical Exam - Vital signs Vitals: Temp Pulse Resp BP Pulse Ox 98.6 F 78 18 111/66 97 08/28/19 06:23 08/28/19 06:23 08/28/19 06:23 08/28/19 06:23 07/14/20 06:23 Interpretation: Normal - General General appearance: Alert In distress: Mild - HEENT Head: Normocephalic, Atraumatic Eyes: Normal Pupils: PERRL - Respiratory Respiratory status: No respiratory distress - 98% O2 sats Chest status: Nontender Breath sounds: Wheezing - Inspiratory and expiratory wheezing, expiratory > inspiratory Chest palpation: Normal - Cardiovascular Rhythm: Regular Heart sounds: Normal auscultation Murmur: No Friction rub: No Gallop: None auscultated - Abdominal Inspection: Normal Distension: No distension Bowel sounds: Normal Tenderness: Nontender - Abdomen soft Organomegaly: No organomegaly - Back Back: Normal, Nontender - Extremities General upper extremity: Normal inspection General lower extremity: Normal inspection. No: Edema - Neurological Neuro grossly intact: Yes Orientation: AAOx4 Pamela Coma Scale Eye Opening: Spontaneous Pamela Coma Scale Verbal: Oriented [place] Coma Scale Motor: Obeys Commands [place] Coma Scale Total: 15 - Psychological Associated symptoms: Normal affect, Normal mood - Skin Skin Temperature: Warm Skin Moisture: Dry Skin Color: Normal Course - Re-evaluation Re-evalutation: 08/28/19 06:59 Patient with inspiratory expiratory mild wheezing. Patient is scheduled to get a albuterol treatment prior to discharge. - Vital Signs Vital signs: Temp Pulse Resp BP Pulse Ox 98.6 F 78 18 111/66 97 08/28/19 06:23 08/28/19 06:23 08/28/19 06:23 08/28/19 06:23 08/28/19 06:23 Pulse oximetry ranged between 97 and 100% without any signs of tachypnea or distress. Discharge - Discharge Clinical Impression: Asthma exacerbation, mild Disposition: HOME, SELF-CARE Instructions: Inhaled Bronchodilators ([facility]), Asthma ([facility]) Prescriptions: Albuterol Sulfate [Proair HFA Inhalation Aerosol 8.5 gm MDI] 2 puff IH Q4H PRN #1 mdi PRN Reason: I personally performed the services described in the documentation, reviewed and edited the documentation which was dictated to the scribe in my presence, and it accurately records my words and actions.
[2019-08-28 07:05] VITALS: BP 112/55
== END 2019-08-28 07:07 | disposition home or self-care (01) ==
LOC: ER 06:05
DX: J45.20 Mild intermittent asthma, uncomplicated (principal)
CPT/HCPCS: 94640; 99284

== ENCOUNTER 2019-08-28 20:14 | Emergency (ER) | payer SELFPAY ==
[2019-08-28] MEDS ORDERED: IPRATROPIUM/ALBUTEROL 0.5-2.5 MG/3 ML AMPUL NEB ONE (23:57)
[2019-08-28] MEDS ORDERED: PREDNISONE 20 MG TABLET PO ONE (23:57)
--- NOTE | 2019-08-29 00:13 | ER Document Report ---
ED General - General Chief Complaint: Asthma Exacerbation Stated Complaint: DIFFICULTY BREATHING Time Seen by Provider: 08/29/19 00:11 Mode of Arrival: Ambulatory Information source: Patient Notes: 08/28/19 23:54 - ED Nursing Note by [facility] Num: [id number] : 1995 Patient Age: 24 pt presents with trouble breathing, pain with deep breaths, chest pain, Inspiratory and expiratory wheezes, chest tightness, reports these symptoms worsened this sfternoon. Pt reports he was seen in ED last night and given a breathing treatment, but he can't afford the meds that were prescribes. Pt unable to lay flat, reports hx of asthma. Pt denies sore throat. Breath sounds even and unlabored. Pursed lip breathing noted. Initialized on 08/28/19 23:54 - END OF NOTE my notes 24-year-old black male arrives with chief complaint of having more than 24 hours of wheezing and asthma exacerbation. He reports he has had asthma since he was a child. Patient reports he works at [email or web address] and needs tomorrow off. He also is out of his hand-held nebulizer and uses his good friend's nebulizer machine. He can take the tubing home and I will write him a box of albuterol Nebules as well as hand-held nebulizer. Patient is much improved after a breathing treatment tonight. We will also write him for 5 days of 20 mg steroids. TRAVEL OUTSIDE OF THE [place] IN LAST 30 DAYS: No - HPI Onset: Yesterday Onset/Duration: Sudden, Worse Quality of pain: No pain Severity: Mild Pain Level: 1 - Orders Associated symptoms: Shortness of breath Exacerbated by: Coughing, Deep breathing Relieved by: Denies Similar symptoms previously: Yes Recently seen / treated by doctor: Yes - Related Data Allergies/Adverse Reactions: No Known Allergies Allergy (Verified 06/17/19 22:36) Past Medical History - General Information source: Patient - Social History Smoking Status: Never Smoker Cigarette use (# per day): No Chew tobacco use (# tins/day): No Smoking Education Provided: No Frequency of alcohol use: Occasional Drug Abuse: None Lives with: Family Family History: Reviewed & Not Pertinent, Thyroid Disfunction Patient has suicidal ideation: No Patient has homicidal ideation: No Pulmonary Medical History: Reports: Hx Asthma Renal/ Medical History: Denies: Hx Peritoneal Dialysis Skin Medical History: Reports Hx Eczema Psychiatric Medical History: Reports: Hx Attention Deficit Hyperactivity Disorder, Hx Bipolar Disorder, Hx Depression Past Surgical History: Reports: Hx Orthopedic Surgery - pin in left hip - Immunizations Immunizations up to date: Yes Hx Diphtheria, Pertussis, Tetanus Vaccination: Yes Review of Systems - Review of Systems Constitutional: No symptoms reported EENT: No symptoms reported Cardiovascular: No symptoms reported Respiratory: See HPI, Cough, Short of breath, Wheezing Gastrointestinal: No symptoms reported Genitourinary: No symptoms reported Male Genitourinary: No symptoms reported Musculoskeletal: No symptoms reported Skin: No symptoms reported Hematologic/Lymphatic: No symptoms reported Neurological/Psychological: No symptoms reported Physical Exam - Vital signs Vitals: Temp Pulse Resp BP Pulse Ox 98.3 F 78 22 H 123/79 95 08/28/19 20:20 08/28/19 20:20 08/28/19 20:20 08/28/19 20:20 08/28/19 20:20 Interpretation: Tachypneic - General General appearance: Alert - HEENT Head: Normocephalic, Atraumatic Eyes: Normal Pupils: PERRL Mouth/Lips: Normal Mucous membranes: Normal Pharynx: Normal Neck: Normal - Respiratory Respiratory status: Tachypnea, Other - Fiber sentences but improving after breathing treatment. Chest status: Nontender Breath sounds: Wheezing - Left greater than right improving after breathing treatment. Chest palpation: Normal - Cardiovascular Rhythm: Regular Heart sounds: Normal auscultation Murmur: No - Abdominal Inspection: Normal Distension: No distension Bowel sounds: Normal Tenderness: Nontender - Rectal Tenderness: - Disc Prostate: Other - deferred - Genitourinary Scrotum: Other - deferred - Back Back: Normal - Extremities General upper extremity: Normal inspection General lower extremity: Normal inspection - Neurological Neuro grossly intact: Yes Cognition: Normal Orientation: AAOx4 [place] Coma Scale Eye Opening: Spontaneous Pamela Coma Scale Verbal: Oriented [place] Coma Scale Motor: Obeys Commands Pamela Coma Scale Total: 15 Speech: Normal Motor strength normal: LUE, RUE, LLE, RLE Sensory: Normal - Psychological Associated symptoms: Anxious - Skin Skin Temperature: Warm Skin Moisture: Dry Course - Vital Signs Vital signs: Temp Pulse Resp BP Pulse Ox 98.5 F 78 22 H 123/79 95 08/28/19 23:49 08/28/19 20:20 08/28/19 20:20 08/28/19 20:20 08/28/19 20:20 - Diagnostic Test Radiology reviewed: Reports reviewed Discharge - Discharge Clinical Impression: Asthma exacerbation, mild Disposition: HOME, SELF-CARE Additional Instructions: Follow-up with personal doctor return to ER as needed take medicines as directed encourage fluids use albuterol hand-held nebulizer when not in house. Also you may use the nebulizer machine with Nebules while in-house. Take prednisone 1 tablet daily for 5 days and Zithromax as directed. Prescriptions: Prednisone [Deltasone 20 mg Tablet] 1 tab PO DAILY 5 Days #5 tablet Albuterol Sulfate [Proair HFA Inhalation Aerosol 8.5 gm MDI] 2 puff IH Q4H PRN #1 mdi PRN Reason: Albuterol Sulfate [Proventil 0.5% Neb 2.5 mg/0.5 ml Vial.neb] 2.5 mg NEB QID PRN #1 b PRN Reason: Azithromycin [Zithromax 250 mg Tablet] 250 mg PO ASDIR PRN #6 tablet PRN Reason: Forms: Return to Work
[2019-08-29] MEDS: ALBUTEROL SULFATE 0.083% NEB 2.5 MG/3 ML AMPUL NEB SCH ×2 (00:23→01:13)
[2019-08-29 01:14] VITALS: BP 131/61
[2019-08-29] MEDS ORDERED: ALBUTEROL SULFATE HFA (90 MCG/PUFF) 8 GM MDI IH ONE (01:18)
--- NOTE | 2019-08-29 01:28 | RADIOLOGY REPORT (SQ) ---
EXAM DESCRIPTION: X-RAY CHEST- One View CLINICAL HISTORY: Asthma COMPARISON: April 24, 2019 TECHNIQUE: Single view of the chest. FINDINGS: There are overlying EKG leads. There are no discrete air space infiltrates, pneumothoraces or pleural effusions. The pulmonary vascularity is normal. The cardiomediastinal silhouette is normal in size. No suspicious lytic or blastic osseous lesions are identified. IMPRESSION: There are no acute lung parenchymal findings.
== END 2019-08-29 01:50 | disposition home or self-care (01) ==
LOC: ER 08-29 01:25
DX: J45.901 Unspecified asthma with (acute) exacerbation (principal)
CPT/HCPCS: 94640; 99284; 71045; J7512; J3490

== ENCOUNTER 2019-11-30 12:23 | Emergency (ER) | payer SELFPAY ==
[2019-11-30] MEDS ORDERED: ALBUTEROL SULFATE HFA (90 MCG/PUFF) 8 GM MDI (1 MDI/ER DISP) IH ONE (12:56)
[2019-11-30] MEDS ORDERED: PREDNISONE 20 MG TABLET PO ONE (12:56)
--- NOTE | 2019-11-30 12:58 | ER Document Report ---
ED Respiratory Problem - General Chief Complaint: Asthma Exacerbation Stated Complaint: DIFFICULTY BREATHING/NEED ASTHMA MEDS Time Seen by Provider: 11/30/19 12:52 Primary Care Provider: [facility] [Provider Group] - Follow up as needed [facility] [Provider Group] - Follow up as needed [facility] [Provider Group] - Follow up as needed Mode of Arrival: Ambulatory Information source: Patient Notes: 24-year-old male presents to ED for complaint of history of asthma. He ran out of his asthma inhaler and he tried to mow her lawn today. He does have wheezes throughout. He is alert oriented respirations regular but with wheezes. He states he has been having some cough. Constitutional: Negative for fever. HENT: Negative for sore throat. Eyes: Negative for visual changes. Cardiovascular: Negative for chest pain. Respiratory: Short of breath, cough, wheezing. He does have a history of asthma. Dates he has been out of his inhaler for a while and then tried to mow the grass today Gastrointestinal: Negative for abdominal pain, vomiting or diarrhea. Genitourinary: Negative for dysuria. Musculoskeletal: Negative for back pain. Skin: Negative for rash. Neurological: Negative for headaches, weakness or numbness. 10 point ROS negative except as marked above and in HPI. PHYSICAL EXAMINATION: GENERAL: Well-appearing, well-nourished and in no acute distress. HEAD: Atraumatic, normocephalic. EYES: Pupils equal round extraocular movements intact, conjunctiva are normal. ENT: Nares patent NECK: Normal range of motion LUNGS: Wheezes throughout all lobes inspiratory and expiratory. Oxygen sats are 100% Musculoskeletal: Normal range of motion NEUROLOGICAL: Normal speech, normal gait. PSYCH: Normal mood, normal affect. SKIN: Warm, Dry, normal turgor, no rashes or lesions noted. TRAVEL OUTSIDE OF THE [place] IN LAST 30 DAYS: No - HPI Patient complains to provider of: Asthma, Short of breath Onset: Last week Duration: Intermittent episodes Initiating Event: Allergy Quality of pain: Other - Tight Severity: Mild Pain Level: 1 Context: Hx asthma Short of Breath: Mild Chest pain/discomfort: Tightness Cough: Nonproductive Sputum amount: None At home treatment: Bronchodilators Associated symptoms: Short of breath Similar symptoms previously: Yes Recently seen / treated by doctor: No - Related Data Allergies/Adverse Reactions: No Known Allergies Allergy (Verified 06/17/19 22:36) Home Medications: Albuterol inhaler Past Medical History - General Information source: Patient - Social History Smoking Status: Unknown if Ever Smoked Frequency of alcohol use: Occasional Drug Abuse: None Lives with: Family Family History: Reviewed & Not Pertinent, Thyroid Disfunction Patient has homicidal ideation: No - Past Medical History Cardiac Medical History: Reports: None Pulmonary Medical History: Reports: Hx Asthma EENT Medical History: Reports: None Neurological Medical History: Reports: None Endocrine Medical History: Reports: None Renal/ Medical History: Reports: None Malignancy Medical History: Reports None GI Medical History: Reports: None Musculoskeletal Medical History: Reports None Skin Medical History: Reports Hx Eczema Psychiatric Medical History: Reports: Hx Attention Deficit Hyperactivity Disorder, Hx Bipolar Disorder, Hx Depression Traumatic Medical History: Reports: None Infectious Medical History: Reports: None Past Surgical History: Reports: Hx Orthopedic Surgery - pin in left hip - Immunizations Immunizations up to date: Yes Hx Diphtheria, Pertussis, Tetanus Vaccination: Yes Physical Exam - Vital signs Vitals: Temp Pulse Resp BP Pulse Ox 97.8 F 85 16 118/71 96 11/30/19 12:35 11/30/19 12:35 11/30/19 12:35 11/30/19 12:35 11/30/19 12:35 Course - Re-evaluation Re-evalutation: 11/30/19 22:38 Patient stated he felt much better after the inhaler and steroids. He was discharged home with a prescription for another inhaler and prednisone. Patient was given instructions please to follow-up as soon as possible with primary care. I have given instructions for follow-up. I have given him a list of primary care doctors to follow-up with. I have given him prescription for prednisone and another inhaler. - Vital Signs Vital signs: Temp Pulse Resp BP Pulse Ox 97.9 F 68 18 118/71 100 11/30/19 14:18 11/30/19 14:18 11/30/19 14:18 11/30/19 12:35 11/30/19 14:18 - Diagnostic Test Radiology reviewed: Image reviewed, Reports reviewed Discharge - Discharge Clinical Impression: Asthma exacerbation Qualifiers: Asthma severity: moderate Asthma persistence: unspecified Qualified Code(s): J45.901 - Unspecified asthma with (acute) exacerbation Condition: Stable Disposition: HOME, SELF-CARE Additional Instructions: ASTHMA: You have been diagnosed as having asthma. This is a condition where there is episodic tightness in the bronchial tubes. Allergies, infections, and polluted or cold air may be contributing factors. Emergency treatment of a severe asthma attack may include adrenaline shots, or bronchodilator aerosol. You may feel lightheaded, have a decreased exercise tolerance and a rapid pulse for an hour or two. Rest and get plenty of fluids. Home treatment of asthma requires bronchodilator drugs. These can be administered by injection, inhalation, or by mouth. Antibiotics and corticosteroids may be required for some patients. You should avoid chemical fumes, dusts, pollens, and exercising in very cold or dry air. If you smoke, stop!! If you develop a fever, increased wheezing, chest pain, or severe shortness of breath, you should contact the doctor immediately. STEROID MEDICATION: You have been given a medicine of the cortisone/steroid class. This medication is used to control inflammation or allergy. It is usually only given for a short period of time, until the acute process subsides. There are usually no side effects from short-term use of cortisone-like medications. Some persons feel an increased sense of well-being and are not sleepy at bedtime. Long-term use of cortisone medications is best avoided, unless required for a severe condition. If your condition does not remit, or relapses after the course of corticosteroid medication, you should consult your physician. INHALED BRONCHODILATORS: You have received treatment(s) of and/or prescription for an inhaled bronchodilator -- a medication which stimulates the airways in the lung to dilate. This improves the flow of air in asthma, bronchitis, and emphysema. These medicines have some similarity to adrenaline, and can cause similar side effects: shakiness, racing heart, and a sense of nervousness. These side effects decrease with time. Contact your doctor if these side effects are severe. Do not over-use the medicine. Too-frequent use of the inhaler may make it ineffective. Call your doctor if the inhaler is not controlling your symptoms at the prescribed doses. SMOKING: If you smoke, you should stop smoking. The tar and chemicals in cigarette smoke are harmful. Smoking has been shown to cause: emphysema chronic bronchitis lung cancer mouth and throat cancer stomach and pancreas cancer premature aging defects In addition, smoking increases ear and lung infections in children of smokers. USE OF ACETAMINOPHEN: Acetaminophen may be taken for pain relief or fever control. It's much safer than aspirin, offering a wider range of "safe" dosages. It is safe during . Some brand names are Tylenol, Panadol, Datril, Anacin 3, Tempra, and Liquiprin. Acetaminophen can be repeated every four hours. The following are maximum recommended dosages: USE OF ACETAMINOPHEN (Tylenol): Acetaminophen may be taken for pain relief or fever control. It's much safer than aspirin, offering a wider range of "safe" dosages. It is safe during . Some brand names are Tylenol, Panadol, Datril, Anacin 3, Tempra, and Liquiprin. Acetaminophen can be repeated every four hours. The following are maximum recommended dosages: WEIGHT Dose Drops Elixir Chewable(80mg) (LBS.) drprs=droppers tsp=teaspoon 6 40 mg 0.4 ml (1/2) 6-11 80 mg 0.8 ml (full) tsp 1 tab 12-16 120 mg 1 1/2 drprs 3/4 tsp 1 1/2 tabs 17-23 160 mg 2 drprs 1 tsp 2 tabs 24-30 240 mg 3 drprs 1 1/2 tsp 3 tabs 30-35 320 mg 2 tsp 4 tabs 36-41 360 mg 2 1/4 tsp 4 1/2 tabs 42-47 400 mg 2 1/2 tsp 5 tabs 48-53 480 mg 3 tsp 6 tabs 54-59 520 mg 3 1/4 tsp 6 1/2 tabs 60-64 560 mg 3 1/2 tsp 7 tabs 65-70 600 mg 3 3/4 tsp 7 1/2 tabs 71-76 640 mg 4 tsp 8 tabs 77-82 720 mg 4 1/2 tsp 9 tabs 83-88 800 mg 5 tsp 10 tabs >89 pounds or adults 650 mg to 900 mg Acetaminophen can be repeated every four hours. Maximum dose not to exceed 4000 mg a day. These maximum recommended dosages are slightly higher than the dosages written on the product container, but these dosages are very safe and below the toxic dosage for acetaminophen. FOLLOW-UP CARE: If you have been referred to a physician for follow-up care, call the physicians office for an appointment as you were instructed or within the next two days. If you experience worsening or a significant change in your symptoms, notify the physician immediately or return to the Emergency Department at any time for re-evaluation. Prescriptions: Prednisone [Deltasone 20 mg Tablet] 3 tab PO DAILY 5 Days tablet Albuterol Sulfate [Proair HFA Inhalation Aerosol 8.5 gm MDI] 2 puff IH Q4H PRN #1 mdi PRN Reason: Albuterol Sulfate [Proair HFA Inhalation Aerosol 8.5 gm MDI] 2 puff IH Q4H PRN #1 mdi PRN Reason: For Wheezing Referrals: [facility] [Provider Group] - Follow up as needed [facility] [Provider Group] - Follow up as needed [facility] [Provider Group] - Follow up as needed
--- NOTE | 2019-11-30 13:34 | RADIOLOGY REPORT (SQ) ---
EXAM DESCRIPTION: CHEST 2 VIEWS IMAGES COMPLETED DATE/TIME: 11/30/2019 1:22 pm REASON FOR STUDY: wheezing short of breath COMPARISON: 08/29/2019 EXAM PARAMETERS: NUMBER OF VIEWS: two views TECHNIQUE: Digital Frontal and Lateral radiographic views of the chest acquired. RADIATION DOSE: NA LIMITATIONS: none FINDINGS: LUNGS AND PLEURA: No opacities, masses or pneumothorax. No pleural effusion. MEDIASTINUM AND HILAR STRUCTURES: No masses or contour abnormalities. HEART AND VASCULAR STRUCTURES: Heart normal size. No evidence for failure. BONES: No acute findings. HARDWARE: None in the chest. OTHER: No other significant finding. IMPRESSION: NO ACUTE RADIOGRAPHIC FINDING IN THE CHEST. TECHNICAL DOCUMENTATION: JOB ID: [id number] 2010 [employer]- All Rights Reserved Reading location - IP/workstation name: [email or web address]
[2019-11-30 14:18] VITALS: BP 118/71
== END 2019-11-30 14:20 | disposition home or self-care (01) ==
LOC: ER 12:23
DX: J45.901 Unspecified asthma with (acute) exacerbation (principal)
CPT/HCPCS: 99283; 71046; J7512; J3490